=== PATIENT | female | born 1990 | race Caucasian/White ===

== ENCOUNTER 2020-09-05 16:42 | Emergency (ER) | payer OTHER ==
[2020-09-05 17:46] LABS: BASOPHIL 0.9 % (0-2); EOSINOPHIL 1.8 % (0-5); HGB 13.8 g/dl (12.5-16.0); LYMPHOCYTE 30.6 % (15-48); MCH 32.4 pg (25.0-31.0); MCHC 34.5 g/dL (32.0-36.0); MCV 93.9 fL (78.0-100.0); MONOCYTE 10.2 % (0-12); MPV 10.5 fL (6.0-9.5); NEUTROPHIL 56.2 % (41-80); NRBC 0; PLT 331 K/uL (150-400); RBC 4.26 M/uL (4.20-5.40); RDW 12.4 % (11.5-14.0); WBC 9.2 K/uL (4.0-10.5)
[2020-09-05 17:48] LABS: BILIRUBIN NEGATIVE (NEGATIVE); BLOOD 1+ Ery/uL (NEGATIVE); CLARITY CLEAR (CLEAR); COLOR YELLOW (YELLOW); GLUCOSE (U) NORMAL (NORMAL); LEUKOCYTES NEGATIVE Leu/uL (NEGATIVE); NITRITE NEGATIVE (NEGATIVE); PROTEIN NEGATIVE (NEGATIVE); SPECIFIC GRAVITY <=1.005 (1.001-1.030); UROBILINOGEN 0.2 mg/dL (0.2-1.0)
[2020-09-05 17:56] LABS: BACTERIA TRACE
[2020-09-05 18:02] LABS: BUN/CREAT RATIO (CALC) 13.5 RATIO; CREATININE 0.74 mg/dL (0.51-0.95); POTASSIUM 3.5 mmol/L (3.5-5.1)
== END 2020-09-05 20:48 | disposition home or self-care (01) ==
LOC: FER 16:42
PROVIDERS: Emergency Medicine; Nurse Practitioner Family
DX: O20.0 Threatened abortion (principal); O24.911 Unspecified diabetes mellitus in pregnancy, first trimester; E11.9 Type 2 diabetes mellitus without complications; Z87.19 Personal history of other diseases of the digestive system; Z3A.01 Less than 8 weeks gestation of pregnancy
CPT/HCPCS: 36415; 76830; 80048; 81001; 84702; 85025